=== PATIENT | female | born 1960 | race Caucasian/White ===

== ENCOUNTER 2019-09-08 06:28 | Day surgery (SDC) | payer BC ==
[2019-09-08] MEDS ORDERED: Lactated Ringers 1,000 ML IV SCH (07:00)
[2019-09-08] MEDS ORDERED: Propofol 200 MG/20 ML SDV ONE ×2 (07:44→10:25)
[2019-09-08] MEDS ORDERED: fentaNYL 100 MCG/2 ML SDV ONE (07:44)
--- NOTE | 2019-09-08 13:56 | OR ---
DATE OF SURGERY: 09/08/2019. REFERRING PROVIDER: Danette Eason MD PRE-OPERATIVE DIAGNOSES: Screening colonoscopy. This is the patient's 1st colonoscopy. She denies any family history of colon cancer. POST-OPERATIVE DIAGNOSES: 1. Long tortuous redundant colon. I was only able to reach the hepatic flexure area despite using multiple maneuvers. 2. A 7-mm sessile polyp at 55 cm, removed with multiple bites using cold forceps. 3. Mild hemorrhoids. 4. Scant sigmoid diverticulosis. PROCEDURE: Colonoscopy with polypectomy x1 using cold forceps. SURGEON: Luis Martinze M.D. ANESTHESIA: Monitored anesthesia care. BOWEL PREP: Good. Koki is a 59-year-old female who was brought to the endoscopy suite after discussing risks and benefits of the procedure. Informed consent was obtained for conscious sedation and colonoscopy with or without biopsy and/or polypectomy. We also discussed possibility of missed lesions. Pre-procedure exam was unremarkable. IV, oxygen, and monitors were placed. The patient was placed in the left lateral decubitus position. Sedation was administered and a digital rectal exam was performed which was unremarkable. Colonoscope was passed into the rectum and advanced to the hepatic flexure. The patient did have a very long, tortuous, redundant colon. Multiple maneuvers including scope stiffening, abdominal pressure, the patient's repositioning did not allow me to intubate the cecum. I did use the entire length of the scope as well. The colonoscope was slowly withdrawn and the mucosa was closed observed in a direct circumferential manner. The transverse colon was unremarkable. The descending colon revealed a 7-mm sessile polyp at 55 cm, removed with multiple bites using cold forceps. The sigmoid colon revealed some scant diverticulosis. Retroflexion was performed and rectal mucosa revealed some mild hemorrhoids. Scope was removed. The patient tolerated the procedure well. The patient was monitored until that baseline status. Discharge instructions were reviewed and the patient was discharged in good condition. COMPLICATIONS: None. TOTAL TIME: 44 minutes. ESTIMATED BLOOD LOSS: About 1 mL. RECOMMENDATIONS/FOLLOW-UP: We will await results of path report to determine ideal followup interval. Could consider barium enema to visualize the right colon or consider earlier followup with Gastroenterology in [place] depending on path results. The options were discussed with the patient and she will think about it. I would like to kindly thank Dr. Eason for this referral. DMB: 09/08/2019 13:06:20 MODL: 09/08/2019 13:47:45 /[id number]
== END 2019-09-08 12:15 | disposition home or self-care (01) ==
LOC: VM.SDS 06:28
PROVIDERS: ATTEND Family Medicine
DX: Z12.11 Encounter for screening for malignant neoplasm of colon (principal); D12.4 Benign neoplasm of descending colon; Q43.8 Other specified congenital malformations of intestine; K57.30 Diverticulosis of large intestine without perforation or abscess without bleeding; K64.9 Unspecified hemorrhoids; E78.00 Pure hypercholesterolemia, unspecified; G43.009 Migraine without aura, not intractable, without status migrainosus; M15.9 Polyosteoarthritis, unspecified; I83.90 Asymptomatic varicose veins of unspecified lower extremity; G47.10 Hypersomnia, unspecified; M79.10 Myalgia, unspecified site; E79.0 Hyperuricemia without signs of inflammatory arthritis and tophaceous disease; E66.09 Other obesity due to excess calories; Z68.35 Body mass index [BMI] 35.0-35.9, adult; Z88.8 Allergy status to other drugs, medicaments and biological substances; Z88.2 Allergy status to sulfonamides; Z91.048 Other nonmedicinal substance allergy status
CPT/HCPCS: J2704; J3010; J7120